=== PATIENT | male | born 1980 | race Caucasian/White ===

== ENCOUNTER → 2023-12-24 18:16 | Outpatient (REF) | payer OTHER, SELFPAY | LOC: MRI 18:16 | PROVIDERS: ATTENDING PHYSICIAN Family Medicine | DX: G44.53 Primary thunderclap headache (principal) | CPT/HCPCS: 70544; 70553; A9575 ==

== ENCOUNTER 2024-09-12 19:56 | Inpatient (IN) | payer OTHER, SELFPAY ==
[2024-09-12 17:13] VITALS: BP 158/92
--- NOTE | 2024-09-12 18:09 | ED.GENMED ---
History of Present Illness
General
Chief Complaint: Abdominal Pain
Source: patient
Exam Limitations: none
Time Seen by Provider: 09/12/24 17:57
History of Present Illness
History of Present Illness:
This is a 44 year old male that comes in with c/o Ulcerative colitis flare. States that he has been on Prednisone for the past 4-5 weeks. States that his GI doctor wanted him to come in for admission as he is not getting any better. States that he
is still having blood mucous stools. States that he has abd pain with the diarrhea. States that he also has a headache and dizziness. Denies any fever, chills, chest pain, SOB, nausea, vomiting, urinary burning.
Past History
Past History
ED Past Medical History: GERD, Hypercholesterolemia and Other (Ulcerative Colitis, stomach ulcer)
ED Past Surgical History: Orthopedic (Left knee meniscus), Tonsilectomy (and adnoids) and Urological (vasectomy)
Social History
Tobacco: Former smoker
Alcohol: Occasional
Personal:
Living: with family
Review of Systems
Review of Systems
All Other Systems: ROS reviewed and negative except as documented in HPI and ROS
Constitutional: Reports no symptoms; Denies fever or chills
EENT: Reports no symptoms
Respiratory: Reports no symptoms; Denies cough or trouble breathing
Cardiac: Reports no symptoms; Denies chest pain
ABD/GI: Reports abdominal pain and diarrhea; Denies nausea or vomiting
: Reports no symptoms; Denies dysuria, frequency or urgency
Musculoskeletal: Reports no symptoms
Skin: Reports no symptoms
Neurological: Reports dizzy and headache
Psychiatric: Reports no symptoms
Phy Exam
General Physical Exam
General Presentation: well appearing and no apparent distress
General age: appears stated age
General Skin: warm, dry and pale
General Habitus: normal
General Mental: alert
General Hydration: appears well hydrated
ENT Exam
ENT Exam: TM's normal, pharynx normal and neck supple
Eye Exam
Eye Exam: EOMI
Cardiovascular Exam
Cardiovascular Exam: regular rate/rhythm, no edema, no murmur and normal peripheral pulses
Pulmonary Exam
Pulmonary Exam: lungs clear, no respiratory distress, no rales, chest non tender, no crackles, no rhonchi, no wheezing and no cough
Gastrointestinal Exam
Gastrointestinal Exam: normal bowel sounds, soft, no organomegaly, no pulsatile mass, non distended and tender (Lower abd tenderness with palpation)
Musculoskeletal Exam
Musculoskeletal Exam: full ROM and no edema
Skin Exam
Skin Exam: warm/dry, no rash, no petechia and pallor
Psychiatric Exam
Psychiatric Exam: normal mood/affect
Course
Orders/Labs/Results
Orders:
Orders
09/12/24 Breakfast
Clear Liquid
09/12/24 18:06
0.9% Sodium Chloride 1000 ml [Nss] 1,000 ml IV BOLUS
09/12/24 18:28
Complete Blood Count/With Diff Urgent
Comprehensive Metabolic Panel Urgent
Lactic Acid Urgent
09/12/24 18:38
CT Abd/pel W Iv And Oral Contr Urgent
Comment: history of Ulcerative colitis
Reason For Exam: Blood stool, Abd pain
Iohexol [Omnipaque] See Protocol PO NOW STA
09/12/24 18:41
HYDROmorphone [Dilaudid] 0.5 mg IV NOW STA
Ondansetron Injectable [Zofran] 4 mg IV NOW STA
09/12/24 19:10
MethylPREDNISolone PF [Solu-Medrol Pf] 30 mg IV ONCE ONE
09/12/24 19:11
Consult Gastroenterology [GASTROINTESTINAL CONSULT] Urgent
Consulting Provider: Sia Webster
Was physician already notified: Yes
09/12/24 19:36
Admit/Transfer Patient As Directed
Co-Sign Provider:
Level of Care: Inpatient admission
Assign to:: Medical/Surgical
Physician / Group: eugenio
Diagnosis: ulcerative colitis
Reason for Hospitalization: ulcerative colitis
Expected length of stay greater than two midnights?: Yes
ELOS- Estimated Length of Stay in days: 3
I certify the patient meets the requirements for IP care: Yes
PRN Pain Medication Management As Directed
May give lesser potent ordered pain med per pt: Yes
preference::
Protocol:: Medication orders for pain may be administered in a
manner that supports deferring to patient preference
when the pt is:
- Requesting an ordered lesser potent pain medication.
Least to most potent pain medications are defined
as: acetaminophen < NSAID < tramadol < opioids
(morphine, oxycodone, hydromorphone).
- Requesting a lesser dose of the same medication IF
ORDERED.
- Requesting a less intrusive route of administration
if both routes are prescribed by the provider (PO <
IV).
09/12/24 19:37
Code Status As Directed
Resuscitation Status: Full Code
09/12/24 22:05
0.9% Sodium Chloride 1000 ml [Nss] 1,000 ml IV 60 mls/hr
Acetaminophen [Tylenol] 650 mg PO Q4HPRN PRN
Bisacodyl [Dulcolax] 10 mg RECTAL [id number] PRN
Docusate W/Senna [Senokot-S] 1 tablet PO BIDPRN PRN
HYDROmorphone [Dilaudid] 0.5 mg IV Q4HPRN PRN
Polyethylene Glycol Powder [Miralax] 17 grams PO DAILYPRN PRN
09/12/24 22:05
Activity As Directed
Activity Level: As Tolerated
Venous Foot Pumps As Directed
Location: Bilateral feet
Vital Signs As Directed
Frequency: Per unit guidelines
DX Deep Vein Thrombosis Video Routine
09/13/24 06:00
Complete Blood Count/No Diff IN AM
09/13/24 08:00
Atorvastatin [Lipitor] 20 mg PO DAILY
Ferrous Sulfate [Feosol] 325 mg PO DAILY
MethylPREDNISolone PF [Solu-Medrol Pf] 30 mg IV Q12H
Pantoprazole [Protonix] 40 mg PO DAILY
Vitamin B Complex with C [B COMPLEX w/VITAMIN C] 1 caplet PO DAILY
09/14/24 06:00
Complete Blood Count/No Diff IN AM
09/15/24 06:00
Complete Blood Count/No Diff IN AM
09/16/24 06:00
Complete Blood Count/No Diff IN AM
Abnormal Lab Results
09/12/24
18:28
WBC 11.5 H 10^3/uL
(4.8-10.8)
RBC 4.63 L 10^6/uL
(4.70-6.10)
MCHC 32.9 L g/dL
(33.0-37.0)
RDW 16.0 H %
(11.5-14.5)
Absolute Neuts (auto) 10.6 H 10^3/uL
(1.4-6.5)
Absolute Lymphs (auto) 0.8 L 10^3/uL
(1.2-3.4)
Neutrophils % 91.4 H %
(42.2-75.2)
Lymphocytes % 6.5 L %
(20.5-51.1)
Monocytes % 1.4 L %
(1.7-9.3)
BUN 21 H mg/dl
(9-20)
Glucose 132 H mg/dl
(70-99)
09/12/24 18:28
09/12/24 18:28
Leukocytosis, slight Dehydration. Hyperglycemia. lactic normal at 1.5
Vital Signs
Initial and Last Documented VS:
Initial Vital Signs
Temp Pulse Resp BP Pulse Ox
98.2 F 72 18 158/92 97
09/12/24 17:13 09/12/24 17:13 09/12/24 17:13 09/12/24 17:13 09/12/24 17:13
Last Documented Vital Signs
Temp Pulse Resp BP Pulse Ox
98.1 F 72 18 132/91 96
09/12/24 22:09 09/12/24 22:09 09/12/24 22:09 09/12/24 22:09 09/12/24 22:09
MDM/Problems Addressed
Differential Diagnosis Includes:
Ulcerative colitis flare,
MDM/Problems Addressed:
This is a 44 year old male that comes in with c/o ulcerative colitis flare. States that he has been on out patient steroid for the past 4-5 weeks and it is not working. States that he was told to come by his GI specialist for admission and IV
steroids.
Message sent to Dr. Webster to see if he would like a CT or just get patient admitted for steroids. Will check labs at this time.
Dr. Webster would like a CT scan and hold off on antibiotics. Would like IV steroids. Will Give Solumedrol 30mg BID. Will admit. Hospitalist notified.
Chronic conditions affecting care:
Ulcerative colitis
Acute Exacerbation and/or Progression of Chronic Illness:
Ulcerative colitis
*Radiology
Radiology exam reviewed: radiology read reviewed (CT scan- Suspect gastritis. No other significant or acute process in the abdomen or pelvis. Mild diffuse colonic stool burden may reflect constipation. )
*Pulse Oximetry
Patient hypoxic: no
*EKG
Interpreted by ED Provider?: NA
Rate: EKG- N/A
*Interior Design Professional Interpretation
Rate: Interior Design Professional- N/A
*Critical Care Note
Total Time (30-74mins, 75-104mins- exclusive of procedures): Not Applicable
ED Attending Note
-
Portions of this chart may have been created with voice recognition software.� Occasional wrong word or��sound alike� substitutions may have occurred due to the inherent limitations of voice recognition software.
Discharge Plan
Departure
Patient Disposition: Admit
Date of Disposition: 09/12/24
Time of Disposition: 19:15
Admit to: Med/Surg
Presentation/result/management discussed w/ accepting MD/DO: Hospitalist
Condition: Good
Covid-19: Not Applicable
Discharge Problem:
Ulcerative colitis, acute
Interventions
Interventions:
*Risk Screen - Suicide Last Done: 09/12/24 17:13
*General Assessment Last Done: 09/12/24 17:13
*Neglect/Abuse Screening Last Done: 09/12/24 17:13
ED- Fall Risk Assessment Last Done: 09/12/24 18:21
*ED COVID-19 Vaccine History Last Done: 09/12/24 18:21
*Nursing Disposition Last Done: 09/12/24 21:50
QM-Slomwn-Xjytplwtyu Assessment Last Done: 09/12/24 18:21
Discharge Date and Time
Discharge Date/Time: 09/12/24 21:51
[2024-09-12 18:21] VITALS: BMI 29.6
[2024-09-12 18:22] VITALS: BP 144/95
[2024-09-12] MEDS: NSS 1000 IV ×2 (18:35→22:44)
[2024-09-12 18:44] LABS: % Basophils 0.3 % (0-2); % Eosinophils 0.1 % (0-6); % Immature Granulocytes 0.3 % (0-0.5); % Lymphocytes 6.5 % (20.5-51.1); % Monocytes 1.4 % (1.7-9.3); % Neutrophils 91.4 % (42.2-75.2); Absolute Lymphocytes 0.8 10^3/uL (1.2-3.4); Absolute Monocytes 0.2 10^3/uL (0.1-0.6); Absolute Neutrophils 10.6 10^3/uL (1.4-6.5); Hematocrit 42.2 % (39.0-52.0); Hemoglobin 13.9 g/dL (13.0-18.0); Mean Corp Hgb Conc. 32.9 g/dL (33.0-37.0); Mean Corpuscular Volume 91.1 fL (80.0-94.0); Mean Platelet Volume 8.8 fL (7.4-10.4); Nucleated Red Blood Cells % 0 % (-); Platelet Count 272 10^3/uL (130-400); Red Blood Cell Count 4.63 10^6/uL (4.70-6.10); White Blood Cell Count 11.5 10^3/uL (4.8-10.8)
[2024-09-12] MEDS: ZOFRAN 4 MG IV (18:48)
[2024-09-12] MEDS: OMNIPAQUE 50 ML PO (18:48)
[2024-09-12] MEDS: DILAUDID 0.5 MG IV ×2 (18:49→22:45)
[2024-09-12 18:55] LABS: Lactic Acid 1.5 mmol/L (0.7-2.0)
[2024-09-12 19:02] LABS: ALT (SGPT) 26 U/L (0-50); AST (SGOT) 20 U/L (17-59); Albumin 4.3 g/dl (3.5-5.0); Alkaline Phosphatase 61 U/L (38-126); Blood Urea Nitrogen 21 mg/dl (9-20); Calcium 9.2 mg/dl (8.4-10.2); Carbon Dioxide 26 mmol/L (22-30); Chloride 102 mmol/L (98-107); Estimated Creatinine Clearance 103 ml/min; Glucose 132 mg/dl (70-99); Sodium 138 mmol/L (135-145); Total Protein 7.1 g/dl (6.3-8.2); eGFR > 60.00
--- NOTE | 2024-09-12 19:18 | HPS.HSE ---
Family Physician
-
Family Physician: Brooks Martinez
Chief Complaint
-
lower abdominal pain associated with bloody diarrhea.
History of Present Illness
44 year old male with manage medical history for ulcerative colitis presented to us with lower abdominal cramps associate with bloody diarrhea for past 1 month. He complained of 5-6 loose bloody per day. For past few days, he noticed worsening
bloody stools. Patient is on prednisone for past 4 weeks. Patient denied any nausea vomiting. Patient denied any headache, dizziness, syncope. Patient denied any chest pain short of breath. Patient denied fever, chills. Patient denied dysuria
hematuria.
CT pending. Patient received normal saline and Solu-Medrol in ER. Admitting for further management
Medical History
Past Medical History
Past Medical History: Reports Other
Additional Past Medical History:
Hiatal hernia
GERD without esophagitis
Ulcerative pancolitis
Hyperlipidemia
Past Surgical History: Reports Other
Additional Past Surgical History:
Tonsillectomy
Vasectomy
Social History
Tobacco: Non-smoker
Alcohol: Occasional
Drug: None
Living: With Family
Employment: Employed
Family History
Family History: Not pertinent
Allergies / Home Medications
Allergies reflects when Allergies were last updated in [facility].
Home Medications with original date entered in [facility]
Allergy/Medication List:
Allergies
Allergy/AdvReac Type Severity Reaction Status Date / Time
No Known Allergies Allergy Unverified 09/12/24 17:13
Review of Systems
-
Constitutional: Reports No Symptoms
EENT: Reports No Symptoms
Respiratory: Reports No Symptoms
Cardiac: Reports No Symptoms
Abdomen/GI: Reports Abdominal Pain, Diarrhea and Bloody Stools
: Reports No Symptoms
Musculoskeletal: Reports No Symptoms
Skin: Reports No Symptoms
Neurological: Reports No Symptoms
Endocrine: Reports No Symptoms
Hematologic/Lymphatic: Reports No Symptoms
Psych: Reports No Symptoms
Physical Exam
Vital Signs
Vital Signs
Temp Pulse Resp BP Pulse Ox
98.2 F 80 18 144/95 98
09/12/24 17:13 09/12/24 18:21 09/12/24 17:13 09/12/24 18:22 09/12/24 18:30
Physical Exam
General: Well Developed, Well Nourished and No Apparent Distress
HEENT: NormoCephalic, Moist mucous membranes and Atraumatic
Respiratory: Clear
Cardiac: S1/S2 and Regular Rhythm; No Murmur or Rub
GI: Soft, Non Tender, Non Distended and Normal Bowel Sounds; No Organomegaly
Rectal: Deferred by Provider
Musculoskeletal: No Clubbing, No Cyanosis and No Edema
Skin: No Rash
Neuro: AO x 3 and Nonfocal/grossly intact
Psych: Calm
Laboratory Results
-
09/12/24 18:28
09/12/24 18:28
Laboratory Results
Lactic Acid 1.5 mmol/L (0.7-2.0) 09/12/24 18:28
Total Bilirubin 1.0 mg/dl (0.2-1.3) 09/12/24 18:28
AST 20 U/L (17-59) 09/12/24 18:28
ALT 26 U/L (0-50) 09/12/24 18:28
Alkaline Phosphatase 61 U/L (38-126) 09/12/24 18:28
Data Reviewed
-
Lab Data: Labs Reviewed by me
Impression/Plan
-
# Ulcerative colitis flare
-IV Solu-Medrol 30 Mg twice a day
-CT pending
-GI consulted
-WBC 11.5
-Dilaudid as needed for pain
-Patient is on Stelara as outpatient
# Hyperlipidemia
-Atorvastatin continued
# DVT prophylaxis
-SCD
# CODE STATUS
-Full code
--- NOTE | 2024-09-12 19:26 | W.PN.UPDATE ---
Update Note
Progress Note Update
Patient seen in conjunction with ERIN. I agree with findings on history and physical. I concur with the assessment and plan listed otherwise.
Is a 44-year-old male with past medical history of GERD, hyperlipidemia, history of ulcerative colitis with pancolitis maintained on Stelara who has been having exacerbation of his ulcerative colitis for the last several weeks. The patient reported
due to not being having to take prednisone for the last 4 to 5 weeks without improvement. He continues to have abdominal pain and diarrhea. He reports no bloody and mucus containing stools. He does report some dizziness. He denies fevers or
chills. He denies any nausea or vomiting. He denies abdominal distention or bloating. Patient was requested to come to the emergency department by his clerk guide. Patient had last colonoscopy 1 year ago per routine. His last u.c flair
was also about 1 year ago lasting one week and clearing with oral prednisone.
In the ED he was afebrile, blood pressure was stable at 144/90 with a pulse of 80. He had a mild leukocytosis to 11.5 with normal hemoglobin and platelet counts. The chemistries were all within normal limits with preserved renal function. A CT of
the abdomen pelvis is pending. GI about the patient.
A&P Patient w/ ongoing UC symptoms without toxic appearance or overwhelming dehydration. Subacute exacerbation. Unlikely infectious. Failing oral steroids.
- admit to med/surg
- clear liquid diet
- CT A/P pending
- IV steroids 30mg solumedrol BID
- pain control
- s/p IV fluids in ED
- continue his PPI
DVT PPX - lovenox sq
Code status - Full Code
[2024-09-12] MEDS: SOLU-MEDROL PF 30 MG IV (19:37)
[2024-09-12 22:09] VITALS: BP 132/91
[2024-09-12 22:10] VITALS: BMI 29.3
[2024-09-13] MEDS: TYLENOL 650 MG PO ×2 (06:07→17:26)
[2024-09-13 07:05] VITALS: BP 153/106
[2024-09-13] MEDS: SOLU-MEDROL PF 30 MG IV ×2 (08:12→19:49)
[2024-09-13] MEDS: FEOSOL 325 MG PO (08:12)
[2024-09-13] MEDS: B COMPLEX w/VITAMIN C 1 CAPLET PO (08:12)
[2024-09-13] MEDS: PROTONIX 40 MG PO (08:12)
[2024-09-13] MEDS: LIPITOR 20 MG PO (08:12)
[2024-09-13 08:23] LABS: Hematocrit 45.1 % (39.0-52.0); Hemoglobin 14.9 g/dL (13.0-18.0); Mean Corpuscular Hgb 29.9 pg (27.0-31.0); Mean Corpuscular Volume 90.6 fL (80.0-94.0); Mean Platelet Volume 9.1 fL (7.4-10.4); Platelet Count 294 10^3/uL (130-400); Red Blood Cell Count 4.98 10^6/uL (4.70-6.10); Red Cell Dist. Width 15.9 % (11.5-14.5); White Blood Cell Count 13.9 10^3/uL (4.8-10.8)
[2024-09-13] MEDS: DILAUDID 0.5 MG IV ×3 (08:41→20:01)
--- NOTE | 2024-09-13 10:17 | CON.GI ---
Addendum entered and electronically signed by Sia Wesbter MD 09/13/24 13:15:
I saw and examined the patient.
The SENIOR DIRECTOR OF [employer]'s note was reviewed and I agree with the note.
Comment: This is a 44-year-old male with past medical history of ulcerative colitis diagnosed about 15 years ago initially on mesalamine then was started on Remicade lost response/dev ab then was switched to Humira developed antibodies and then was
started on Stelara about 2 years ago with the outside practice currently on it every 8 weeks, GERD, PUD, hiatal hernia who was following up with Dr. Marvin Lowry and who had seen me in the office as a new patient for 1 visit and had called with
symptoms of a flare about 2 to 4 weeks ago was initially given budesonide but he had said that he does not respond to it so then was started on prednisone 40 mg daily and was told to taper by 5 mg Q week but when he tried to taper to 30 mg about 2
weeks ago he had called back with symptoms of a flare and was told to go back to 40 mg and taper again after 10 days. When he called again with symptoms last week was told to come into the ER but he had held off and came last night. He says that
he is been having intermittent episodes of diarrhea with blood in the stool no fevers or chills. He did have stool studies checked in August which was negative including C. difficile which was negative fecal Yaniv was only mildly elevated at 144.
He currently denies any abdominal pain. Reflux is pretty well-controlled on Nexium was unable to wean off of it. His last endoscopy and colonoscopy were in [address] Marvin Lowry his colitis was in remission and endoscopy was unremarkable.
Assessment and plan ulcerative colitis diagnosed 15 years ago and followed up with Dr. Marvin Lowry and only recently switched to our practice. Has been having symptoms of possible flare for the past 1 month not responding to steroids he says that
he always responded to steroids in the past. Will schedule him for a colonoscopy tomorrow to assess disease activity and if he still has evidence of active disease (steroid nonresponsive) then will need to move up his Stelara to every 4 weeks he is
currently on every 8 weeks or switch to a different agent with different mechanism of action(entyvio/PALMER inh)he has failed Remicade and Humira in the past. CT last night does not show any active colitis and shows constipation and possible gastritis
will also schedule him for an endoscopy he does have longstanding GERD symptoms and has been on long-term PPI with Nexium
Addendum entered and electronically signed by ERIN Park 09/13/24 11:34:
correction to below with hx GERD and gastritis on Ct will also add EGD for tomorrow
Original Note:
Consultation
-
Date/Time Consultation Requested: 09/12/24 1900
Date/Time Consultation Performed: 09/13/24 1015
Requesting Provider: ERIN Crum
Performing Provider: ERIN Acuna, Sia Webster MD
Reason for Consultation: UC flare
Medical History
Chief Complaint / HPI
Chief Complaint: abdominal pain
History of Present Illness:
Pt is a 44yo with hx GERD, hypercholesterolemia, HH, stomach ulcer and ulcerative colitis with admission with abdominal pain. In review patient was seen in past with Dr. Marvin Lowry and one time evaluation with Dr. Ibarra. He was diagnosed about
15 years with use of multiple medications including mesalamine oral and suppository, Remicade, Humira, and most recently Stelara every 8 weeks last 2 years. Pt admits to occasional steroid use with most recent steroids last 4 weeks without
improvement with use of Prednisone 40mg daily without taper. Pt did complete stool studies mid August with neg O+P, Giardia, c-diff,stool culture. Fecal yaniv was 144. On admission noted WBC elevation of 11,500 with steroid use, glucose [address]
otherwise stable labs[address] CT on admission with gastritis and constipation.
In review with patient admits to chronic GERD on meterman PPI with failure to wean in past. He admits to some lower abdominal pain, stool frequency, urgency at times, and about 4-5 stools per day with loose stool, blood and mucous. He has and
some 25 lbs intentional wt loss but denies dysphagia, nausea, vomiting, or black stools. Pt has been on iron with hx irn deficiency with hbg 14.9 on admission. No joint pain, rash or visual problems.
last procedures
July 2023- Dr. Lowry
EGD HH, normal esophagus, prominent fold on proximal stomach, mucosa normal, SB normal
Colonoscopy - to cecum and Ti, IBD in remission bx taken
July 2020
EGD HH otherwise unremarkable
colon - cecum and TI- IBD in remission, small hemorrhoids, no pathology seen bx taken
Past Medical History
Past Medical History: GERD, Hypercholesterolemia and Other (ulcerative colitis, stomach ulcer , HH, iron deficiency anemia)
Past Surgical History: Orthopedic (knee meniscus repair), Tonsilectomy (T+A) and Urological (vastectomy)
Social History
Tobacco: Non-Smoker
Alcohol: Occasional
Drug: Marijuana
Personal:
Living: With Family
Employment: Employed
Family History
Family History: Other (nephew and cousin with IBD)
Allergies / Home Medications
Allergy/AdvReac Type Severity Reaction Status Date / Time
No Known Allergies Allergy Unverified 09/12/24 17:13
�Medication �Instructions �Recorded
atorvastatin 20 mg tablet 20 mg PO DAILY High Cholesterol 09/12/24
esomeprazole magnesium 20 mg 20 mg PO DAILY GERD 09/12/24
capsule,delayed release (Nexium)
ferrous sulfate 325 mg (65 mg 325 mg PO DAILY Supplement 09/12/24
iron) tablet
prednisone 20 mg tablet 40 mg PO DAILY INFLAMMATION 09/12/24
ustekinumab 45 mg/0.5 mL 45 mg SC Q12W Antipsoriatic Agent 09/12/24
subcutaneous solution (Stelara)
vitamin B complex 1 cap PO DAILY Supplement 09/12/24
Review of Systems
-
History Source: Patient
Constitutional: Reports Weight Loss (intentional )
EENT: Reports No Symptoms
Respiratory: Reports No Symptoms
Cardiac: Reports No Symptoms
Abdomen/GI: Reports Abdominal Pain, Diarrhea and Bloody Stools
: Reports No Symptoms
Musculoskeletal: Reports Other (occasional knee pain with hx meniscus repair)
Skin: Reports No Symptoms
Neurological: Reports Weakness
Endocrine: Reports No Symptoms
Hematologic/Lymphatic: Reports No Symptoms
Vital Signs
Temp Pulse Resp BP Pulse Ox
97.8 F 66 18 153/106 96
09/13/24 07:05 09/13/24 07:05 09/13/24 07:05 09/13/24 07:05 09/13/24 07:05
Physical Exam
Exam
General: Well Developed, Well Nourished and No Apparent Distress
HEENT: Normocephalic and Anicteric
Respiratory: Clear
Cardiac: Regular Rhythm
GI: Soft and Non Distended
Musculoskeletal: No Clubbing and No Cyanosis
Neuro: Awake, Alert and AO x 3
Psych: Calm
Results
WBC 13.9 10^3/uL (4.8-10.8) H 09/13/24 07:50
Hgb 14.9 g/dL (13.0-18.0) 09/13/24 07:50
Hct 45.1 % (39.0-52.0) 09/13/24 07:50
MCV 90.6 fL (80.0-94.0) 09/13/24 07:50
Plt Count 294 10^3/uL (130-400) 09/13/24 07:50
Absolute Neuts (auto) 10.6 10^3/uL (1.4-6.5) H 09/12/24 18:28
Sodium 138 mmol/L (135-145) 09/12/24 18:28
Potassium 4.0 mmol/L (3.5-5.1) 09/12/24 18:28
Chloride 102 mmol/L (98-107) 09/12/24 18:28
Carbon Dioxide 26 mmol/L (22-30) 09/12/24 18:
BUN 21 mg/dl (9-20) H 09/12/24 18:
Creatinine 0.9 mg/dL (0.7-1.3) 09/12/24 18:
Calcium 9.2 mg/dl (8.4-10.2) 09/12/24 18:
Total Bilirubin 1.0 mg/dl (0.2-1.3) 09/12/24 18:
AST 20 U/L (17-59) 09/12/24 18:
ALT 26 U/L (0-50) 09/12/24 18:
Alkaline Phosphatase 61 U/L (38-126) 09/12/24 18:
Diagnostic Image Results:
09/12/24 CT Abd/pel W Iv And Oral Contr
1. Suspect gastritis. No other significant or acute process in the abdomen or pelvis.
2. Mild diffuse colonic stool burden may reflect constipation.
Prior GI Procedures:
July 2023- Dr. Lowry
EGD HH, normal esophagus, prominent fold on proximal stomach, mucosa normal, SB normal
Colonoscopy - to cecum and Ti, IBD in remission bx taken
July 2020
EGD HH otherwise unremarkable
colon - cecum and TI- IBD in remission, small hemorrhoids, no pathology seen bx taken
Assessment / Plan
-
Pt is a 44yo with hx GERD, hypercholesterolemia, HH, stomach ulcer and ulcerative colitis with admission with abdominal pain. In review patient was seen in past with Dr. Marvin Lowry and one time evaluation with Dr. Ibarra. He was diagnosed about
15 years with use of multiple medications including mesalamine oral and suppository, Remicade, Humira, and most recently Stelara every 8 weeks last 2 years. Pt admits to occasional steroid use with most recent steroids last 4 weeks without
improvement with use of Prednisone 40mg daily without taper. Pt did complete stool studies mid August with neg O+P, Giardia, c-diff,stool culture. Fecal yaniv was 144. On admission noted WBC elevation of 11,500 with steroid use, glucose 132
otherwise stable labs. CT on admission with gastritis and constipation.
-lower abdominal pain, rectal bleeding,diarrhea with concern for UC flare no responsive to recent steroid use
-hx ulcerative colitis x 15 years
- CT with gastritis constipation
-Hx GERD on chronic PPI
-hx CONSTANTINO with normal hbg on Admission
-leukocytosis with steroid use
other med problems:
-hypercholesterolemia
-HH
-hx gastric ulcer
PLAN:etiology of symptoms related to UC flare,hemorrhoidal bleeding with CT noted constipation vs other
will check stool studies( recently neg on August as outpatient)
plan for colonoscopy in AM to assess current disease status
add CRP and ESR, recent fecal yaniv 144
pt remains on IV steroids equvilant to Predisone 40mg daily
monitor stool output
trend labs, add iron studies with hx iron deficiency
cont PPI with hx chronic GERD
will review with Dr. Webster for adding GERD with CT noted gastritis
will follow
Pt is scheduled 10/[address] Webster at 1:30pm
-
-
Thank you for consultation and allowing me to participate in the patient's care. Please call the telephone advice nurse GI physician during the after hours with any questions or concerns.
[2024-09-13 11:33] LABS: C-Reactive Protein < 5.00 mg/L (0.0-10.00)
[2024-09-13 12:15] LABS: Ferritin 34.4 ng/ml (17.9-464.0)
--- NOTE | 2024-09-13 12:35 | CM ---
Patient reviewed chart, patient seen bedside, initial assessment completed. Patient resides with his , mother in law, and children in a two story home plus basement, two steps to enter. Patient denies use of DME, VN, or SNF history. Patient PCP
Brooks Martinez, [facility], confirms prescription coverage. Patient denies any insecurities at home, denies needs from CM at this time. CM will continue to follow for all discharge planning needs.
Plan; home no needs likely.
[2024-09-13 13:31] LABS: Erythrocyte Sed Rate 9 mm/hour (0-20)
[2024-09-13] MEDS: NSS 1000 IV (13:59)
[2024-09-13 15:31] LABS: Iron 112 ug/dl (49-181); Percent Saturation 37 % (20-50); Total Iron Binding Capacity 301 ug/dl (261-462)
--- NOTE | 2024-09-13 15:38 | W.PN.HOSP.TC ---
Today's Communication/Plan
-
cont steroids
npo after midnight for EGD/colonoscopy
pain control
Assessment / Plan
Assessment / Plan
Physical Exam
General: Well Developed, Well Nourished and No Apparent Distress
HEENT: NormoCephalic, atraumatic, Moist mucous membranes
Respiratory: Clear
Cardiac: S1/S2 and Regular Rhythm; No Murmur or Rub
GI: Soft, Non Tender, Non Distended and Normal Bowel Sounds; No Organomegaly
Musculoskeletal: No Clubbing, No Cyanosis and No Edema
Skin: No Rash
Neuro: AO x 3
Psych: Calm
44M ulcerative colitis presented with lower abdominal cramps associate with bloody diarrhea for past 1 month. He complained of 5-6 loose bloody per day. For past few days, he noticed worsening bloody stools. Patient was on prednisone for past 4
weeks. Patient denied any nausea vomiting. Patient denied any headache, dizziness, syncope. Patient denied any chest pain short of breath. Patient denied fever, chills. Patient denied dysuria hematuria. Patient received normal saline and
Solu-Medrol in ER. Admitted for further management.
# Ulcerative colitis
-IV Solu-Medrol 30 Mg twice a day
CT appreciated
1. Suspect gastritis. No other significant or acute process in the abdomen or pelvis.
2. Mild diffuse colonic stool burden may reflect constipation.
-GI consult appreciated NPO after midnight for EGD/colonoscopy
-Dilaudid as needed for pain
-Patient is on Stelara as outpatient
-stool studies appreciated largely neg, including Cdiff, rest pending
# Hyperlipidemia
-Atorvastatin continued
# DVT prophylaxis
-SCD
# CODE STATUS
-Full code
I spent a total of 40 minutes with the patient or on the floor. More than 50% of this time involved counseling and coordination of care.
Anticipated Discharge: 24 - 48 hours
Subjective/Interval History
-
Date of Service: September 13, 2024
Reports overall feeling well. Diarrhea improved, more solid bowel movement noted recently. Pain controlled with current regimen.
Objective Data
-
Labs:
Laboratory Results
09/13/24
07:50
WBC 13.9 H
Hgb 14.9
Hct 45.1
Plt Count 294
Vital Signs:
Vital Signs
Temp Pulse Resp BP Pulse Ox
97.8 F 66 18 153/106 96
09/13/24 07:05 09/13/24 07:05 09/13/24 07:05 09/13/24 07:05 09/13/24 07:05
I&O
09/12/24 09/13/24 09/14/24
06:59 06:59 06:59
Intake Total 1380 / 1380
Balance 1380 / 1380
[2024-09-13 15:44] VITALS: BP 150/95
[2024-09-13] MEDS: NULYTELY SOLUTION 4 LITERS PO (17:52)
[2024-09-13] MEDS: DULCOLAX 20 MG PO (21:44)
[2024-09-13 23:00] VITALS: BP 143/88
[2024-09-14] VITALS (7 sets, daily range): BP systolic 16–153; BP diastolic 83–106
[2024-09-14] MEDS: DILAUDID 0.5 MG IV (06:02)
--- NOTE | 2024-09-14 07:01 | W.PN.HOSP.TC ---
Today's Communication/Plan
-
discharge
Assessment / Plan
Assessment / Plan
Physical Exam
General: Well Developed, Well Nourished and No Apparent Distress
HEENT: NormoCephalic, atraumatic, Moist mucous membranes
Respiratory: Clear
Cardiac: S1/S2 and Regular Rhythm; No Murmur or Rub
GI: Soft, Non Tender, Non Distended and Normal Bowel Sounds; No Organomegaly
Musculoskeletal: No Clubbing, No Cyanosis and No Edema
Skin: No Rash
Neuro: AO x 3
Psych: Calm
44M ulcerative colitis presented with lower abdominal cramps associate with bloody diarrhea for past 1 month. He complained of 5-6 loose bloody per day. For past few days, he noticed worsening bloody stools. Patient was on prednisone for past 4
weeks. Patient denied any nausea vomiting. Patient denied any headache, dizziness, syncope. Patient denied any chest pain short of breath. Patient denied fever, chills. Patient denied dysuria hematuria. Patient received normal saline and
Solu-Medrol in ER. Admitted for further management.
# Ulcerative colitis
CT appreciated
1. Suspect gastritis. No other significant or acute process in the abdomen or pelvis.
2. Mild diffuse colonic stool burden may reflect constipation.
-GI consult appreciated EGD/colonoscopy performed 09/14/24 results noted as follows, repeat colonoscopy in 1 yr surveillance recommended
-Dilaudid discontinued in favor of Bentyl as needed for abd pain discomfort as per GI
-outpt Stelara to be increased to Q4wks instead of 8
-stool studies appreciated largely neg, including Cdiff, rest pending
-Prednisone taper 5 mg after every 5 days
EGD appreciated
- Normal esophagus.
- Enlarged gastric folds.
- Multiple gastric polyps. Biopsied.
- Normal examined duodenum.
Colonoscopy appreciated
- examined portion of the ileum normal.
- One 3 mm polyp in the cecum removed
- Diverticulosis in the ascending colon and in the cecum.
- Mildly Erythematous, granular and [id number] mucosa in the rectum and in the recto-sigmoid colon. Biopsied.
- Biopsies for surveillance were taken from the entire colon
# Hyperlipidemia
-Atorvastatin continued
# DVT prophylaxis
-SCD
# CODE STATUS
-Full code
Medically stable for discharge home with outpatient follow up recommendations.
I spent a total of 40 minutes with the patient or on the floor. More than 50% of this time involved counseling and coordination of care.
Anticipated Discharge: Today
Subjective/Interval History
-
Date of Service: September 14, 2024
Seen and examined at bedside in no acute distress sitting up comfortably in bed. reports overall feeling well, notes some abd soreness following procedure. Denies new acute issues at this time. Tolerating diet. Looking forward to going home.
Objective Data
-
Labs:
Laboratory Results
09/14/24
06:00
WBC Pending
Hgb Pending
Hct Pending
Plt Count Pending
Sodium Pending
Potassium Pending
Chloride Pending
Carbon Dioxide Pending
BUN Pending
Creatinine Pending
Glucose Pending
Calcium Pending
Vital Signs:
Vital Signs
Temp Pulse Resp BP Pulse Ox
97.5 F 69 14 143/88 97
09/13/24 23:00 09/13/24 23:00 09/13/24 23:00 09/13/24 23:00 09/13/24 23:00
I&O
09/13/24 09/14/24 09/15/24
06:59 06:59 06:59
Intake Total 1380 / 1380 1979
Balance 1380 / 1380 1979
[2024-09-14 07:52] LABS: Hematocrit 40.3 % (39.0-52.0); Hemoglobin 13.4 g/dL (13.0-18.0); Mean Corp Hgb Conc. 33.3 g/dL (33.0-37.0); Mean Corpuscular Hgb 30.3 pg (27.0-31.0); Mean Corpuscular Volume 91.2 fL (80.0-94.0); Mean Platelet Volume 9.3 fL (7.4-10.4); Platelet Count 243 10^3/uL (130-400); Red Blood Cell Count 4.42 10^6/uL (4.70-6.10); Red Cell Dist. Width 16.1 % (11.5-14.5); White Blood Cell Count 11.6 10^3/uL (4.8-10.8)
[2024-09-14 08:28] LABS: Blood Urea Nitrogen 15 mg/dl (9-20); Calcium 9.1 mg/dl (8.4-10.2); Carbon Dioxide 30 mmol/L (22-30); Chloride 104 mmol/L (98-107); Estimated Creatinine Clearance > 125 ml/min; Glucose 96 mg/dl (70-99); Magnesium 2.2 mg/dl (1.6-2.3); Phosphorus 4.6 mg/dl (2.5-4.5); Sodium 139 mmol/L (135-145); eGFR > 60.00
[2024-09-14] MEDS: PROTONIX 40 MG PO (08:37)
[2024-09-14] MEDS: FEOSOL 325 MG PO (08:37)
[2024-09-14] MEDS: SOLU-MEDROL PF 30 MG IV (08:37)
[2024-09-14] MEDS: LIPITOR 20 MG PO (08:37)
[2024-09-14] MEDS: B COMPLEX w/VITAMIN C 1 CAPLET PO (08:37)
[2024-09-14] MEDS: TYLENOL 650 MG PO (11:12)
[2024-09-14] MEDS: BENTYL 10 MG PO (11:15)
--- NOTE | 2024-09-14 13:48 | W.DCSUMMARY ---
Discharge Summary
Discharge Data
Date of Admission: 09/12/24
Date of Discharge: 09/14/24
-
Pending Results: Yes
Additional Pending Results:
Biopsies pathology results to be followed up with GI
Discharge Plan
-
Patient Disposition: Home (Routine Discharge)
Discharge Diagnosis/Procedures: Ulcerative Colitis
Upper GI Endoscopy and Colonoscopy Performed
Gastric Polyps Biopsied
3 mm polyp removed from cecum
Diverticulosis
Biopsies for surveillance taken from colon
Condition: Fair
Diet: Regular
Activity: As tolerated
Driving Restrictions: As prior to admission
Bathing Restrictions: None
Activity Restrictions/Additional Instructions:
Please follow up with primary care provider in 1 week of discharge and GI in 2-4 weeks of discharge.
Bentyl has been prescribed as needed for abdomen pain/discomfort.
Prednisone taper for ulcerative colitis has been prescribed as follows:
35 mg (7 tabs) daily for 5 days then reduce to 30 mg (6 tabs) for next 5 days.
After every 5 days reduce your daily prednisone dose by 5 mg (1 tab) until finished.
Please take medications as prescribed/recommended and follow up with primary care provider GI and/or other healthcare provider involved in your care for refills and/or further adjustment to your medication regimen as necessary.
Referrals:
Brooks Martinez MD [Family Provider] - in one week
Sia Webster MD [Active] - in two to four weeks
Prescriptions:
New
dicyclomine 10 mg Capsule
10 mg PO TIDPRN PRN (Reason: abd pain discomfort) Qty: 42 0RF
prednisone 5 mg tablet
5 mg PO DIRECTED Qty: 140 0RF
Rx Instructions:
35mg (7 tabs) daily for 5 days then reduce to 30 mg daily.
Reduce by 5mg (1 tab) after every 5 days until finished.
Continued
atorvastatin 20 mg Tablet
20 mg PO DAILY
ferrous sulfate 325 mg (65 mg iron) Tablet
325 mg PO DAILY
vitamin B complex Capsule
1 cap PO DAILY
esomeprazole magnesium [Nexium] 20 mg Capsule,Delayed Release(Dr/Ec)
20 mg PO DAILY
Changed
Stelara 45 mg/0.5 mL Solution
45 mg SC Q4W Qty: 0 0RF
Discontinued
prednisone 20 mg Tablet
40 mg PO DAILY
Discharge Orders:
Discharge Patient (As Directed); Ordered 09/14/24
Ordered By: Naye Whiting
Discharge Date and Time
Print Language: SLOVENIAN
--- NOTE | 2024-09-14 15:26 | CM ---
CM reviewed chart, patient seen beside. Patient reports no needs to CM upon discharge, confirms will provide transportation home. CM will continue to follow for all discharge planning needs.
Plan; home with family, no needs.
== END 2024-09-14 16:46 | disposition home or self-care (01) | DRG 387 ==
LOC: 4 WEST ACU 19:56
PROVIDERS: Clinical Nurse Specialist Family Health; Registered Nurse; ADMITTING PHYSICIAN Internal Medicine; ATTENDING PHYSICIAN Internal Medicine; CONSULT PHYSICIAN Internal Medicine Gastroenterology; EMERGENCY PHYSICIAN Emergency Medicine; FAMILY PHYSICIAN Family Medicine
PROC: 0DDE8ZX Extraction of Large Intestine, Via Natural or Artificial Opening Endoscopic, Diagnostic (ICD-10-PCS; 2024-09-14)
PROC: 0DBH8ZX Excision of Cecum, Via Natural or Artificial Opening Endoscopic, Diagnostic (ICD-10-PCS; 2024-09-14)
PROC: 0DB68ZX Excision of Stomach, Via Natural or Artificial Opening Endoscopic, Diagnostic (ICD-10-PCS; 2024-09-14)
DX: K51.011 Ulcerative (chronic) pancolitis with rectal bleeding (principal); K31.7 Polyp of stomach and duodenum; K57.30 Diverticulosis of large intestine without perforation or abscess without bleeding; K21.9 Gastro-esophageal reflux disease without esophagitis; E78.00 Pure hypercholesterolemia, unspecified; K59.00 Constipation, unspecified; D50.9 Iron deficiency anemia, unspecified; Z79.899 Other long term (current) drug therapy; K29.70 Gastritis, unspecified, without bleeding; D72.829 Elevated white blood cell count, unspecified; Z87.891 Personal history of nicotine dependence
CPT/HCPCS: 88305; 74177; 80048; 80053; 82728; 83540; 83550; 83605; 83735; 84100; 85025; 85027; 85652; 86140; 87045; 87046; 87077; 87324; 87328; 87329; 87427; 87449; 88342; 89055; 96361; 96374; 96375; 99285; Q9967

== ENCOUNTER 2024-11-16 06:13 | Day surgery (SDC) | payer OTHER, SELFPAY ==
[2024-11-16 08:25] VITALS: BMI 29.7
[2024-11-16 08:30] VITALS: BP 148/102
[2024-11-16 08:43] VITALS: BMI 29.7
[2024-11-16 10:36] VITALS: BP 108/90
[2024-11-16 10:46] VITALS: BP 125/91
[2024-11-16 11:00] VITALS: BP 134/90
[2024-11-16] MEDS: TYLENOL 1000 MG PO (11:31)
== END 2024-11-16 11:35 | disposition home or self-care (01) ==
LOC: SDS 06:13
PROVIDERS: ATTENDING PHYSICIAN Internal Medicine Gastroenterology
DX: K31.89 Other diseases of stomach and duodenum (principal); K31.7 Polyp of stomach and duodenum; K86.9 Disease of pancreas, unspecified; R93.5 Abnormal findings on diagnostic imaging of other abdominal regions, including retroperitoneum
CPT/HCPCS: 43254; 43259; 43239; 88305; 88342

== ENCOUNTER 2025-03-02 06:20 | Day surgery (SDC) | payer OTHER, SELFPAY | END 2025-03-02 09:04 | disposition home or self-care (01) | LOC: GI 06:20 | PROVIDERS: ATTENDING PHYSICIAN Internal Medicine Gastroenterology | DX: K51.30 Ulcerative (chronic) rectosigmoiditis without complications (principal); K64.8 Other hemorrhoids; K62.89 Other specified diseases of anus and rectum; K63.89 Other specified diseases of intestine; K51.90 Ulcerative colitis, unspecified, without complications | CPT/HCPCS: 45331; 88305 ==

== ENCOUNTER → 2025-08-07 18:13 | Outpatient (REF) | payer OTHER, SELFPAY | LOC: RAD 18:13 | PROVIDERS: ATTENDING PHYSICIAN Family Medicine | DX: M84.372A Stress fracture, left ankle, initial encounter for fracture (principal); S96.911A Strain of unspecified muscle and tendon at ankle and foot level, right foot, initial encounter | CPT/HCPCS: 73610; 73630 ==

== ENCOUNTER → 2025-08-28 07:16 | Outpatient (REF) | payer OTHER, SELFPAY | LOC: MRI 07:16 | PROVIDERS: ATTENDING PHYSICIAN Family Medicine | DX: M25.572 Pain in left ankle and joints of left foot (principal); G89.29 Other chronic pain; S96.912D Strain of unspecified muscle and tendon at ankle and foot level, left foot, subsequent encounter | CPT/HCPCS: 73721 ==